=== PATIENT | female | born 1985 | race Caucasian/White ===

== ENCOUNTER 2016-10-11 11:32 | Emergency (ER) | payer OTHER ==
[~2016-10-11] VITALS: Ht 167.6 cm; Wt 70.0 kg
[~2016-10-11 11:32] MED LIST: AMOXICILLIN500 MG PO; FIORICET PO; NAPROSYN500 MG PO; NO HOME MEDS; PROAIR HFA IN; VENTOLIN HFA IN; ZITHROMAX250 MG PO
[2016-10-11] MEDS ORDERED: LEXAPRO10 MG PO (11:53)
[2016-10-11] MEDS ORDERED: GABAPENTIN100 MG PO (11:54)
[2016-10-11] MEDS ORDERED: AMITRIPTYLIN10 MG PO (11:58)
[2016-10-11] MEDS ORDERED: AMOXICILLIN500 MG PO (12:04)
[2016-10-11 12:15] VITALS: BP 138/83
== END 2016-10-11 12:15 | disposition home or self-care (01) | DRG 607 ==
LOC: ED 11:32
DX: S40.862A Insect bite (nonvenomous) of left upper arm, initial encounter (principal); L03.114 Cellulitis of left upper limb; W57.XXXA Bitten or stung by nonvenomous insect and other nonvenomous arthropods, initial encounter

== ENCOUNTER 2018-05-19 14:15 | Emergency (ER) | payer OTHER ==
[~2018-05-19] VITALS: Ht 167.6 cm; Wt 65.9 kg
[~2018-05-19 14:15] MED LIST changes: +AMITRIPTYLIN10 MG PO; +GABAPENTIN100 MG PO; +LEXAPRO10 MG PO
[2018-05-19 16:17] VITALS: BP 138/89
== END 2018-05-19 16:17 | disposition home or self-care (01) ==
LOC: ED 14:15
DX: S40.012A Contusion of left shoulder, initial encounter (principal); M25.512 Pain in left shoulder; Y04.8XXA Assault by other bodily force, initial encounter; Y92.009 Unspecified place in unspecified non-institutional (private) residence as the place of occurrence of the external cause

== ENCOUNTER 2021-01-18 10:22 | Emergency (ER) | payer OTHER ==
[~2021-01-18] VITALS: Ht 167.6 cm; Wt 82.0 kg
[2021-01-18] MEDS ORDERED: AMOXICILLIN500 MG PO (12:46)
[2021-01-18 13:06] VITALS: BP 133/69
== END 2021-01-18 13:06 | disposition home or self-care (01) ==
LOC: ED 10:22
DX: J03.90 Acute tonsillitis, unspecified (principal); F41.9 Anxiety disorder, unspecified; F17.200 Nicotine dependence, unspecified, uncomplicated; Z20.822 Contact with and (suspected) exposure to COVID-19

== ENCOUNTER 2021-01-28 15:14 | Emergency (ER) | payer OTHER ==
[~2021-01-28] VITALS: Ht 167.6 cm; Wt 79.0 kg
[2021-01-28] MEDS ORDERED: ULTRAM50 MG PO (16:07)
[2021-01-28] MEDS ORDERED: IBUPROFEN600 MG PO (16:07)
[2021-01-28 16:35] VITALS: BP 186/95
== END 2021-01-28 16:35 | disposition home or self-care (01) ==
LOC: ED 15:14
DX: S80.02XA Contusion of left knee, initial encounter (principal); W18.39XA Other fall on same level, initial encounter; Y92.481 Parking lot as the place of occurrence of the external cause
CPT/HCPCS: L1830

== ENCOUNTER 2021-06-21 09:15 | Emergency (ER) | payer OTHER ==
[2021-06-21] VITALS (14 sets, daily range): BP systolic 97–137; BP diastolic 57–86
[~2021-06-21] VITALS: Ht 167.6 cm; Wt 82.0 kg
[~2021-06-21 09:15] MED LIST changes: +IBUPROFEN600 MG PO; +ULTRAM50 MG PO
[2021-06-21 09:53] LABS: URINE BLOOD DIPSTICK NEGATIVE (NEGATIVE); URINE COLOR YELLOW; URINE GLUCOSE - DIPSTICK NEGATIVE (NEGATIVE); URINE KETONE NEGATIVE (NEGATIVE); URINE LEUK ESTERASE TRACE (NEGATIVE); URINE PH 5.5 (4.5-8.0); URINE PROTEIN - DIPSTICK TRACE mg/dL (NEG-TRACE); URINE SPECIFIC GRAVITY >=1.030; URINE UROBILINOGEN - DIPSTICK 0.2 E.U./dL (0.2)
[2021-06-21 09:58] LABS: URINE NITRITE - DIPSTICK NEGATIVE (Negative)
[2021-06-21 10:00] LABS: URINE BILIRUBIN - DIPSTICK NEGATIVE (NEGATIVE)
[2021-06-21 10:25] LABS: BILIRUBIN, TOTAL 0.3 mg/dL (0.0-1.4); BUN 8 mg/dL (7-17); BUN/CREATININE RATIO 11 (12-20 (CALC)); CHLORIDE 107 mmol/l (95-108); CREATININE 0.7 mg/dL (0.5-1.0); GFR > 60 ML/MIN (>=60 (CALC)); GFR FOR AFR.AMER. > 60 ML/MIN (>=60 (CALC)); LIPASE 37 u/l (23-300); POTASSIUM 3.7 mmol/l (3.5-5.1); SGOT/AST 26 u/l (14-36); SODIUM 137 mmol/l (137-146); TOTAL PROTEIN 7.2 g/dL (6.3-8.2)
[2021-06-21 10:26] LABS: ALBUMIN 3.8 g/dL (3.2-5.0); ALKALINE PHOSPHATASE 73 u/l (38-126); ANION GAP 11 (6-22 (CALC)); CARBON DIOXIDE 23 mmol/l (22-30)
[2021-06-21 10:28] LABS: HEMATOCRIT 42.2 % (37.0-47.0); HEMOGLOBIN 13.9 g/dl (12.0-16.0); IMMATURE GRANULOCYTES 0.4 % (0.0-5.0); MEAN CELL VOLUME 95.5 fL CALC (80.0-100.0); MEAN CORPUSCULAR HGB 31.4 pG CALC (26.0-32.0); MEAN CORPUSCULAR HGB CONC 32.9 g/dL CAL (32.0-36.0); NEUT# 5.05 thou/uL (2.00-7.15); RED BLOOD COUNT 4.42 mill/uL (4.20-5.60); RED CELL DISTRI WIDTH 12.6 % (11.5-15.5)
[2021-06-21] MEDS ORDERED: PYRIDIUM200 MG PO (12:41)
[2021-06-21] MEDS ORDERED: DICYCLOMINE HCL20 MG PO (12:41)
== END 2021-06-21 13:03 | disposition home or self-care (01) ==
LOC: ED 09:15
PROVIDERS: Internal Medicine
DX: R10.30 Lower abdominal pain, unspecified (principal); F41.9 Anxiety disorder, unspecified

== ENCOUNTER 2021-06-26 00:07 | Emergency (ER) | payer OTHER ==
[~2021-06-26] VITALS: Ht 167.6 cm; Wt 81.0 kg
[~2021-06-26 00:07] MED LIST changes: +DICYCLOMINE HCL20 MG PO; +PYRIDIUM200 MG PO
[2021-06-26 00:31] VITALS: BP 104/59
[2021-06-26] MEDS ORDERED: PROAIR HFA108 MCG/AC (00:35)
[2021-06-26] MEDS ORDERED: SYMBICORT 80-4.5MCG (00:36)
[2021-06-26 00:45] VITALS: BP 102/52
[2021-06-26] MEDS ORDERED: SYMBICORT1 AE1 IN (00:57)
[2021-06-26] MEDS ORDERED: VENTOLIN HFA IN (00:57)
[2021-06-26 01:00] VITALS: BP 116/67
[2021-06-26 01:08] VITALS: BP 116/67
== END 2021-06-26 01:08 | disposition home or self-care (01) ==
LOC: ED 00:07
DX: J45.901 Unspecified asthma with (acute) exacerbation (principal); F17.210 Nicotine dependence, cigarettes, uncomplicated; F41.9 Anxiety disorder, unspecified

== ENCOUNTER 2023-09-17 07:56 | Emergency (ER) | payer OTHER ==
[~2023-09-17] VITALS: Ht 167.6 cm; Wt 81.6 kg
[2023-09-17] VITALS (8 sets, daily range): BP systolic 115–135; BP diastolic 71–100
[~2023-09-17 07:56] MED LIST changes: +CETIRIZINE10 MG PO; +NAPROXEN500 MG PO; +PENICILLN VK500 MG PO; +PREDNISONE20 MG PO; +PROAIR HFA108 MCG/AC; +SYMBICORT 80-4.5MCG; +SYMBICORT1 AE1 IN
[2023-09-17] MEDS ORDERED: KETOROLAC TROMETHAMINE 30 MG/ML SDV IM ONE (08:15)
[2023-09-17] MEDS ORDERED: IBUPROFEN600 MG PO (10:01)
[2023-09-17] MEDS ORDERED: FLEXERIL5 M1 PO (10:01)
== END 2023-09-17 10:14 | disposition home or self-care (01) ==
LOC: ED 07:56
DX: M54.50 Low back pain, unspecified (principal)